=== PATIENT | male | born 1940 | race Caucasian/White ===

== ENCOUNTER 2024-01-13 15:28 | Inpatient (IN) | payer MEDICARE, OTHER ==
[~2024-01-13] VITALS: Ht 172.7 cm; Wt 74.4 kg
[2024-01-13] MEDS ORDERED: ETOMIDATE 20 MG/10 ML VIAL IV ONE (16:30)
[2024-01-13] MEDS ORDERED: SUCCINYLCHOLINE CHLORIDE 200 MG/10 ML VIAL IV ONE (16:30)
[2024-01-13] MEDS ORDERED: IPRATROPIUM BROMIDE 0.5 MG/2.5 ML NEBU ONE (16:38)
[2024-01-13] MEDS ORDERED: ALBUTEROL SULFATE 2.5 MG/3 ML NEBU ONE (16:38)
[2024-01-13 16:39] LABS: BASOPHILS # (AUTO) 0.1 K/UL (0.0-0.2); BASOPHILS % (AUTO) 1.2 % (0.0-2.0); DIFFERENTIAL COMMENT 0; EOSINOPHILS # (AUTO) 0.3 K/uL (0.0-0.7); EOSINOPHILS % (AUTO) 4.1 % (0.0-7.0); HEMATOCRIT 32.3 % (36.7-47.1); HEMOGLOBIN 10.6 g/dL (12.5-16.3); LYMPHOCYTES # (AUTO) 1.7 K/uL (0.8-4.8); LYMPHOCYTES % (AUTO) 21.9 % (20.5-51.5); MEAN CORPUSCULAR HEMOGLOBIN 28.2 uug (23.8-33.4); MEAN CORPUSCULAR HGB CONC 33 g/dL (32.5-36.3); MONOCYTES # (AUTO) 0.5 K/uL (0.1-1.30); MONOCYTES % (AUTO) 6.4 % (0.0-11.0); NEUTROPHILS % (AUTO) 66.4 % (38.5-71.5); PLATELET COUNT (AUTO) 193 K/uL (152-348); RED BLOOD CELL COUNT(AUTO) 3.76 MIL/uL (4.06-5.63); RED CELL DISTRIBUTION WIDTH 17.2 % (12.1-16.2); WHITE BLOOD COUNT (AUTO) 7.5 K/uL (3.6-10.2)
[2024-01-13 16:40] VITALS: O2SAT 98
[2024-01-13 16:46] LABS: CARBON DIOXIDE 25 mmol/L (21-32); CHLORIDE 106 mmol/L (98-107); CREATININE 0.8 mg/dL (0.6-1.3); GLUCOSE 120 mg/dL (74-106); POTASSIUM 3.5 mmol/L (3.5-5.1); SODIUM SERUM 141 mmol/L (136-145); UREA NITROGEN, BLOOD 9 mg/dL (7-18)
[2024-01-13] MEDS: IPRATROPIUM BROMIDE 0.5 MG/2.5 ML NEBU NEB ONE (16:46)
[2024-01-13] MEDS: ALBUTEROL SULFATE 2.5 MG/3 ML NEBU NEB ONE (16:46)
[2024-01-13] MEDS ORDERED: methylPREDNISolone SOD SUCC 125 MG/2 ML VIAL ONE (16:47)
[2024-01-13] MEDS ORDERED: MAGNESIUM SULFATE/D5W 200 ML ONE (16:47)
[2024-01-13 16:59] LABS: NT-PRO BNP 1072 pg/mL (0-125)
[2024-01-13] MEDS: methylPREDNISolone SOD SUCC 125 MG/2 ML VIAL IV ONE (17:04)
[2024-01-13] MEDS: MAGNESIUM SULFATE 2 GM in IV DEXTROSE 5% 100 ML IV ONE (17:04)
[2024-01-13 17:05] VITALS: O2SAT 98; O2SAT 99
[2024-01-13] MEDS ORDERED: CEFTRIAXONE /D5W 50ML IVPB **ER PYXIS IV ONE (18:46)
[2024-01-13] MEDS ORDERED: AZITHROMYCIN 500MG/ D5W 250ML IVPB **ER PYXIS ONLY IV ONE (18:47)
[2024-01-13] MEDS: CEFTRIAXONE 1 G in IV DEXTROSE 5% 50 ML IV ONE (19:15)
[2024-01-13] MEDS: AZITHROMYCIN IV 500 MG in IV DEXTROSE 5% 250 ML IV ONE (19:49)
[2024-01-13] MEDS ORDERED: TAMSULOSIN HCL 0.4 MG CAP.SR.24H PO SCH (21:00)
[2024-01-13] MEDS ORDERED: ATOR40TA PO (21:49)
[2024-01-13] MEDS ORDERED: FLUT1BLS15 IH (21:49)
[2024-01-13] MEDS ORDERED: TAMS-3 PO (21:49)
[2024-01-13] MEDS ORDERED: OMEP40CA21 PO (21:49)
[2024-01-13] MEDS ORDERED: METO-356 PO (21:49)
[2024-01-13] MEDS ORDERED: FINA5TAB11 PO (21:49)
[2024-01-13] MEDS ORDERED: ALBU18HF2 IH (21:49)
[2024-01-13] MEDS ORDERED: APIX5TAB PO (21:49)
[2024-01-13] MEDS ORDERED: COLC0.6T67 PO (21:49)
[2024-01-13] MEDS ORDERED: LORA10TA60 PO (21:49)
[2024-01-13] MEDS ORDERED: ESCI5TAB16 PO (21:49)
[2024-01-13] MEDS ORDERED: AZEL6DRO5 OP (21:49)
[2024-01-13 22:15] VITALS: BP 129/60; TEMP 97.8; O2SAT 95
[2024-01-13] MEDS ORDERED: ONDANSETRON 4 MG/2 ML VIAL IV PRN (22:30)
[2024-01-13] MEDS ORDERED: ACETAMINOPHEN 325 MG TABLET PO PRN (22:30)
[2024-01-13] MEDS ORDERED: ENOXAPARIN SODIUM 40 MG/0.4 ML DISP.SYRIN SQ SCH (22:30)
[2024-01-13] MEDS ORDERED: MAGNESIUM HYDROXIDE 30 ML LIQUID UDC PO PRN (22:30)
[2024-01-13] MEDS ORDERED: ZOLPIDEM 5 MG TABLET PO PRN (22:30)
[2024-01-13] MEDS ORDERED: REMEDY ESSENTIAL ZINC PASTE 113 GM TP PRN (22:30)
[2024-01-13] MEDS: TAMSULOSIN HCL 0.4 MG CAP.SR.24H PO SCH (22:48)
[2024-01-13] MEDS: levoFLOXacin 750 MG TABLET PO ONE (22:48)
[2024-01-13] MEDS: methylPREDNISolone SOD SUCC 125 MG/2 ML VIAL IV SCH (22:49)
[2024-01-13 22:54] LABS: THYROID STIMULATING HORMONE 1.645 mIU/mL (0.358-3.740)
[2024-01-14] VITALS (8 sets, daily range): BP systolic 109–135; BP diastolic 59–79; TEMP 97.2–98.1; O2SAT 91–99
[2024-01-14] MEDS: PANTOPRAZOLE SODIUM 40 MG TABLET.DR PO SCH (06:12)
[2024-01-14 07:19] LABS: BASOPHILS % (AUTO) 0.1 % (0.0-2.0); DIFFERENTIAL COMMENT 1; HEMATOCRIT 31.5 % (36.7-47.1); HEMOGLOBIN 10.6 g/dL (12.5-16.3); LYMPHOCYTES # (AUTO) 0.8 K/uL (0.8-4.8); LYMPHOCYTES % (AUTO) 12.4 % (20.5-51.5); MEAN CORPUSCULAR HEMOGLOBIN 28.8 uug (23.8-33.4); MEAN CORPUSCULAR HGB CONC 34 g/dL (32.5-36.3); MEAN CORPUSCULAR VOLUME 85.5 fL (73.0-96.2); MONOCYTES # (AUTO) 0.1 K/uL (0.1-1.30); MONOCYTES % (AUTO) 0.9 % (0.0-11.0); NEUTROPHILS # (AUTO) 5.4 K/uL (1.8-8.9); NEUTROPHILS % (AUTO) 86.6 % (38.5-71.5); PLATELET COUNT (AUTO) 205 K/uL (152-348); RED BLOOD CELL COUNT(AUTO) 3.68 MIL/uL (4.06-5.63); RED CELL DISTRIBUTION WIDTH 16.5 % (12.1-16.2); WHITE BLOOD COUNT (AUTO) 6.2 K/uL (3.6-10.2)
[2024-01-14 07:45] LABS: CALCIUM 8.5 mg/dL (8.5-10.1); CARBON DIOXIDE 27 mmol/L (21-32); CHLORIDE 106 mmol/L (98-107); CREATININE 0.7 mg/dL (0.6-1.3); GLUCOSE 140 mg/dL (74-106); MAGNESIUM 2.6 mg/dL (1.8-2.4); PHOSPHOROUS 3.2 mg/dL (2.5-4.9); POTASSIUM 4.4 mmol/L (3.5-5.1); SODIUM SERUM 140 mmol/L (136-145); UREA NITROGEN, BLOOD 10 mg/dL (7-18)
[2024-01-14] MEDS: COLCHICINE 0.6 MG TABLET PO SCH (09:00)
[2024-01-14] MEDS: METOPROLOL SUCCINATE XL 25 MG TAB.SR.24H PO SCH (09:03)
[2024-01-14] MEDS: ESCITALOPRAM OXALATE 10 MG TABLET PO SCH (09:03)
[2024-01-14] MEDS: FINASTERIDE 5 MG TABLET PO SCH (09:04)
[2024-01-14] MEDS: LORATADINE 10 MG TAB.RAPDIS PO SCH (09:22)
[2024-01-14] MEDS: APIXABAN 5 MG TABLET PO SCH (11:34)
[2024-01-14] MEDS ORDERED: TAMSULOSIN HCL 0.4 MG CAP.SR.24H PO SCH (21:00)
[2024-01-14] MEDS: levoFLOXacin 750 MG TABLET PO SCH (21:11)
[2024-01-14] MEDS: ATORVASTATIN 40 MG TABLET PO SCH (21:11)
[2024-01-14] MEDS: IPRATROPIUM BROMIDE 0.5 MG/2.5 ML NEBU NEB PRN (21:29)
[2024-01-14] MEDS: ALBUTEROL SULFATE 2.5 MG/3 ML NEBU NEB PRN (21:29)
[2024-01-15] VITALS: BP 140/73; TEMP 97.1; O2SAT 95
[2024-01-15 04:00] VITALS: BP 131/69; TEMP 96; O2SAT 95
[2024-01-15 12:00] VITALS: BP 132/64; TEMP 97.8; O2SAT 90; O2SAT 97
[2024-01-15] MEDS ORDERED: LEVO750T46 PO (12:12)
[2024-01-15] MEDS ORDERED: PRED20TA PO (12:12)
[2024-01-15 13:10] VITALS: O2SAT 93
== END 2024-01-15 14:50 | disposition home or self-care (01) | DRG 866 ==
LOC: ER 15:28 → TELE3 21:41
DX: B34.9 Viral infection, unspecified (principal); J44.1 Chronic obstructive pulmonary disease with (acute) exacerbation; I48.91 Unspecified atrial fibrillation; I25.2 Old myocardial infarction; E78.5 Hyperlipidemia, unspecified; I10 Essential (primary) hypertension; Z87.891 Personal history of nicotine dependence; F32.A Depression, unspecified
CPT/HCPCS: 36415; 71045; 83735; 84100; 84443; 84484; 85025; 93307; 94640; 94760; G0378; J0330; J0456; J0696; J2919; J3475; J3590